=== PATIENT | male | born 1955 | race Asian ===

== ENCOUNTER 2018-01-21 13:12 | Inpatient (IN) | payer OTHER ==
[2018-01-21] VITALS (8 sets, daily range): BP systolic 107–130
[~2018-01-21] VITALS: Ht 172.7 cm; Wt 57.6 kg
--- NOTE | 2018-01-21 13:14 | NUR ---
Pt placed in bed 3 by ALS
--- NOTE | 2018-01-21 13:20 | NUR ---
Pt AAOx4, hx of stage 4 bilateral lung ca, presents to ED c/o SOB, fever, chills, cough, and "slow to respond" per family. Pt states his SOB and cough is normal. Denies N/V/CP. No other injuries/complaints per pt/noted. Will continue to monitor.
--- NOTE | 2018-01-21 13:24 | NUR ---
ER Dr. Schmitt at bedside examining patient.
--- NOTE | 2018-01-21 13:39 | NUR ---
Walker rausch in [facility] - 01/21/18 at 1659 by [email or web address] Pt resting comfortably in bed with no signs of distress.
[2018-01-21] MEDS ORDERED: LEVOFLOXACIN 500 MG/D5W 100 ML IV ONE (13:45)
[2018-01-21] MEDS ORDERED: ALBUTEROL SULFATE 0.083% 2.5 MG/3 ML VIAL.NEB INH ONE ×2 (13:45→14:48)
--- NOTE | 2018-01-21 14:30 | NUR ---
Respiratory at bedside
[2018-01-21 14:32] LABS: BASOPHILS # (AUTO) 0.1 K/uL (0.0-0.2); BASOPHILS % (AUTO) 0.4 % (0.0-2.0); EOSINOPHILS % (AUTO) 0.3 % (0.0-4.0); HEMATOCRIT 32.3 % (36-54); HEMOGLOBIN 10.2 g/dL (14.0-18.0); LYMPHOCYTES # (AUTO) 0.2 K/uL (1.0-5.5); LYMPHOCYTES % (AUTO) 1.7 % (20.5-51.5); MEAN CORPUSCULAR HEMOGLOBIN 23 pg (27-31); MEAN CORPUSCULAR HGB CONC 31 % (32-36); MEAN CORPUSCULAR VOLUME 75 fL (79.0-98.0); MONOCYTES # (AUTO) 0.5 K/uL (0.0-1.0); MONOCYTES % (AUTO) 3.8 % (1.7-9.3); NEUTROPHILS # (AUTO) 11.8 K/uL (1.8-7.7); NEUTROPHILS % (AUTO) 93.8 % (40.0-70.0); PLATELET COUNT (AUTO) 549 K/uL (130-430); RED BLOOD CELL COUNT(AUTO) 4.34 MIL/uL (4.2-6.2); RED CELL DISTRIBUTION WIDTH 19.8 % (9.0-15.0); WHITE BLOOD COUNT (AUTO) 12.6 K/uL (4.8-10.8)
--- NOTE | 2018-01-21 14:35 | NUR ---
IV Antibiotics administered. Pt tolerated well. No adverse reactions noted.
[2018-01-21 14:41] LABS: POTASSIUM 4.2 mmol/L (3.5-5.1)
[2018-01-21 14:42] LABS: CALCIUM 8.6 mg/dL (8.4-11.0); CREATININE 0.87 mg/dL (0.55-1.30)
[2018-01-21 14:43] LABS: INR 1.2 (0.80-1.20); PROTHROMBIN TIME 11.8 SECS (9.5-12.5)
[2018-01-21 14:46] LABS: TOTAL BILIRUBIN 0.3 mg/dL (0.0-1.0)
[2018-01-21] MEDS ORDERED: NACL 0.9% 1,000 ML IV ONE (15:15)
--- NOTE | 2018-01-21 15:45 | NUR ---
NS Bolus administered. Pt tolerated well. No adverse reactions noted.
[2018-01-21] MEDS ORDERED: IOHEXOL 350 mgI/mL, 150 ML INFUS..BTL IV ONE (16:00)
[2018-01-21] MEDS ORDERED: ZOLPIDEM TARTRATE 5 MG TABLET PO PRN (17:15)
[2018-01-21] MEDS ORDERED: IPRATROPIUM/ALBUTEROL SULFATE 3 ML AMPUL.NEB INH PRN (17:15)
[2018-01-21] MEDS ORDERED: DOCUSATE SODIUM 100 MG CAPSULE PO PRN (17:15)
[2018-01-21] MEDS ORDERED: MUPIROCIN 2% TOPICAL OINTMENT 22 GM NS PRN (17:15)
[2018-01-21] MEDS ORDERED: MORPHINE 2 MG/ML INJ. SYRINGE IVP PRN ×2 (17:15)
[2018-01-21] MEDS ORDERED: ONDANSETRON HCL 4 MG/2 ML VIAL IVP PRN (17:15)
[2018-01-21] MEDS ORDERED: LACTOBACILLUS RHAMNOSUS GG 1 CAP CAPSULE PO ONE (17:15)
[2018-01-21] MEDS ORDERED: POTASSIUM CHLORIDE 20 MEQ TAB.PRT.SR PO PRN (17:15)
[2018-01-21] MEDS ORDERED: ACETAMINOPHEN 325 MG TABLET PO PRN (17:15)
[2018-01-21] MEDS ORDERED: MAGNESIUM SULFATE 50 ML IV PRN (17:15)
[2018-01-21 17:23] LABS: BILIRUBIN,URINE NEGATIVE (NEGATIVE); BLOOD, URINE 1+ (NEGATIVE); CLARITY/URINE CLEAR (CLEAR); COLOR,URINE YELLOW (YELLOW); GLUCOSE,URINE NEGATIVE (NEGATIVE); KETONES,URINE NEGATIVE (NEGATIVE); LEUKOCYTE ESTERASE ,URINE TRACE (NEGATIVE); NITRITE, URINE NEGATIVE (NEGATIVE); PROTEIN URINE NEGATIVE (NEGATIVE); UROBILINOGEN,URINE 0.2 (0.2-1.0)
[2018-01-21 17:30] LABS: BACTERIA,URINE FEW /HPF (None Seen)
[2018-01-21 17:31] LABS: MUCUS,URINE 2+ /LPF (None Seen)
--- NOTE | 2018-01-21 17:34 | NUR ---
Dr. Strong contacted for acute hemorrhage. Asked for pt to be admitted to ICU and he will come to see him. Dr. Frey notified, admitting order changed to ICU.
[2018-01-21 17:38] LABS: BARBITURATE, URINE NEGATIVE (NEG <=200); BENZODIAZEPINE, URINE NEGATIVE (NEG <=150); CANNABINOID, URINE NEGATIVE (NEG <=50); COCAINE, URINE NEGATIVE (NEG <=150); METHAMPHETAMINES SCREEN,URINE NEGATIVE (NEG <=500); OPIATE, URINE POSITIVE (NEG <=100); PHENCYCLIDINE SCREEN,URINE NEGATIVE (NEG <=25); UR TRICYCLIC ANTIDEPRESSANTS NEGATIVE (NEG <=300); URINE AMPHETAMINE NEGATIVE (NEG <=500); URINE METHADONE NEGATIVE (NEG <=200); URINE OXYCODONE SCREEN NEGATIVE (NEG <=100); URINE PROPOXYPHENE SCREEN NEGATIVE (NEG <=300)
--- NOTE | 2018-01-21 17:45 | NUR ---
Patient will be admitted to care of Dr. Frey. Admitted to ICU unit. Will go to room 4. Belongings list completed. Summary report printed. Report will be given at bedside. Transfer to ICU via ACLS protocol. Licensed nurse present. IV present no signs or symptoms of infiltration.
[2018-01-21] MEDS ORDERED: PIPERACILLIN/TAZO 3.375/DEX-IS 50 ML IV SCH (18:00)
--- NOTE | 2018-01-21 18:00 | NUR ---
PT ADMITTED TO ICU4 FROM ER VIA [facility] FOR RESPIRATORY FAILURE AND ASPIRATION PNA. O2 SAT 100% ON 3LNC, PT DENIES SHORTNESS OF BREATH AT THIS TIME, UNLABORED RESPIRATIONS. SINUS TACHY ON MONITOR, HR 109. 20G LFA IV WITH NS AT 80ML/HR INFUSING, NO SIGNS INFILTRATION. PT USING URINAL TO VOID. PT DENIES PAIN AT THIS TIME. HOB ELEVATED, BED LOCKED AND IN LOWEST POSITION, CALL LIGHT IN REACH. PT'S AT BEDSIDE. WILL CONTINUE TO MONITOR.
[2018-01-21] MEDS: NACL 0.9% 1,000 ML IV SCH (18:20)
--- NOTE | 2018-01-21 18:37 | NUR ---
SPOKE TO PT AND PT'S SHANICE REGARDING CODE STATUS. EXPLAINED FULL CODE, DNR, MODIFIED CODE, ALL QUESTIONS ANSWERED. PT STATES HE WANTS TO BE DNR. PT STATES "I DON'T WANT ANYBODY DOING THAT STUFF TO ME, I JUST WANT TO ."
--- NOTE | 2018-01-21 18:46 | NUR ---
CONSULT: PAGED DR HART SPOKE TO BAUTISTA
[2018-01-21 19:07] LABS: C-REACTIVE PROTEIN QUANT 13.4 mg/dL (0-0.5); FREE T4 (FREE THYROXINE) 1.3 ng/dL (0.6-1.6)
--- NOTE | 2018-01-21 19:30 | NUR ---
OPENING NOTE PT IN BED, AWAKE, ALERT. NO SIGNS OF DISTRESS, NO COMPLAINT OF PAIN OR DISCOMFORT. SINUS RHYTHM ON THE ELECTRONICS INSTALLER. CARE WILL CONTINUE THROUGH SHIFT.
[2018-01-21 20:53] LABS: PHOSPHORUS 3.7 mg/dL (2.7-4.5); THYROID STIMULATING HORMONE 0.44 uIu/mL (0.34-4.82)
[2018-01-21] MEDS: PIPERACILLIN/TAZO 3.375/DEX-IS 50 ML IV SCH (20:57)
[2018-01-21] MEDS ORDERED: DESMOPRESSIN ACETATE 4 MCG/ML AMP IVP ONE (21:15)
[2018-01-21] MEDS ORDERED: levETIRAcetam 1,000 MG in NS 100 ML IV ONE (21:15)
[2018-01-21] MEDS ORDERED: DESMOPRESSIN ACETATE 4 MCG/ML AMP ONE ×2 (21:44→22:23)
[2018-01-22] VITALS (20 sets, daily range): BP systolic 96–136
[2018-01-22] MEDS: PIPERACILLIN/TAZO 3.375/DEX-IS 50 ML IV SCH ×4 (01:41→20:57)
--- NOTE | 2018-01-22 03:00 | NUR ---
CT SCAN PT TAKEN TO CT FOR CT OF THE HEAD WITHOUT CONTRAST. NO COMPLICATIONS DURING PROCEDURE.
[2018-01-22 06:16] LABS: MEAN CORPUSCULAR HGB CONC 32 % (32-36)
[2018-01-22 06:26] LABS: HEMATOCRIT 25.1 % (36-54); HEMOGLOBIN 7.9 g/dL (14.0-18.0); MEAN CORPUSCULAR HEMOGLOBIN 24 pg (27-31); MEAN CORPUSCULAR VOLUME 75 fL (79.0-98.0); PLATELET COUNT (AUTO) 442 K/uL (130-430); RED BLOOD CELL COUNT(AUTO) 3.36 MIL/uL (4.2-6.2); RED CELL DISTRIBUTION WIDTH 19.4 % (9.0-15.0); WHITE BLOOD COUNT (AUTO) 9.4 K/uL (4.8-10.8)
[2018-01-22 06:33] LABS: CALCIUM 8.1 mg/dL (8.4-11.0); CREATININE 0.79 mg/dL (0.55-1.30); PHOSPHORUS 3.6 mg/dL (2.7-4.5); POTASSIUM 3.7 mmol/L (3.5-5.1)
--- NOTE | 2018-01-22 07:09 | NUR ---
CLOSING NOTE PT IN BED, ASLEEP. NO SIGNS OF DISTRESS, NO PAIN OR DISCOMFORT. NO ACUTE CHANGES IN CONDITION OBSERVED OVERNIGHT. SCHEDULED MRI/MRA AND CTA FOR THIS MORNING CARE WILL CONTINUE TO NEXT SHIFT.
--- NOTE | 2018-01-22 07:30 | NUR ---
RECEIVED REPORT FROM HELENA JAMIL. PT IN BED WITH EYES CLOSED, RESPONDS TO VERBAL STIMULATION. PT AAOX4, ABLE TO VERBALIZE NEEDS. O2 SAT 100% ON 3LNC, PT DENIES SHORTNESS OF BREATH, UNLABORED RESPIRATIONS. SR ON MONITOR. SCDs IN USE. 20G LFA IV WITH NS AT 80ML/HR INFUSING, NO SIGNS INFILTRATION NOTED. HOB ELEVATED, BED LOCKED AND IN LOWEST POSITION, CALL LIGHT IN REACH. DR DAVID, NEUROSURGEON AT BEDSIDE DISCUSSING CT HEAD RESULTS AND PLAN OF CARE. WILL CONTINUE TO MONITOR.
[2018-01-22] MEDS: NACL 0.9% 1,000 ML IV SCH ×2 (08:04→17:06)
[2018-01-22] MEDS: LACTOBACILLUS RHAMNOSUS GG 1 CAP CAPSULE PO SCH (08:04)
[2018-01-22] MEDS: VALSARTAN 160 MG TABLET (DIOVAN) PO SCH (08:04)
[2018-01-22] MEDS: METOPROLOL SUCCINATE 50 MG TAB.SR.24H (TOPROL XL) PO SCH (08:04)
[2018-01-22 08:19] LABS: T4 (THYROXINE) 8.8 ug/dL (4.5-12.0)
--- NOTE | 2018-01-22 09:08 | NUR ---
Nutrition Update Simon Scale 16 noted. Pt admitted for respiratory failure and aspiration pneumonia. Diet: N/A BMI: 22.5 kg/m2 RD to follow per nutrition care standards.
[2018-01-22 12:09] LABS: CALCIUM 7.9 mg/dL (8.4-11.0); CREATININE 0.7 mg/dL (0.55-1.30); POTASSIUM 3.6 mmol/L (3.5-5.1)
[2018-01-22 13:07] LABS: BAND % (MANUAL) 2 % (0-6); LYMPHOCYTES % (MANUAL) 8 % (20-46)
[2018-01-22 13:08] LABS: BASOPHILS % (MANUAL) 0 % (0-2); EOSINOPHILS % (MANUAL) 1 % (0-7); MONOCYTES % (MANUAL) 8 % (0-11)
[2018-01-22] MEDS ORDERED: DEXAMETHASONE SOD PHOSPHATE 10 MG/ML VIAL IVP ONE (13:45)
--- NOTE | 2018-01-22 13:59 | NUR ---
Dietitian Recommendations * Recommend advance diet per MD if/when medically appropriate (regular diet, Ensure Enlive TID) * Consider snacks TID in-between meals LP, RD Please refer to Nutrition Assessment for details.
--- NOTE | 2018-01-22 14:24 | NUR ---
ROUNDS DR SWARTZ HERE TO EVALUATE PT. RECEIVED ORDERS FOR DECADRON AND KEPPRA. SAYS OKAY TO START PT ON REGULAR DIET.
--- NOTE | 2018-01-22 14:44 | NUR ---
PT TAKEN OFF UNIT FOR MRI, ACCOMPANIED BY LOULOU BURNETT. PT ON PORTABLE MONITOR AND O2 TANK.
[2018-01-22] MEDS ORDERED: GADOPENTETATE DIMEGLUMINE 15 ML VIAL IV ONE (15:15)
[2018-01-22] MEDS: levETIRAcetam 1,000 MG in NS 100 ML IV SCH ×2 (17:06→20:58)
--- NOTE | 2018-01-22 19:42 | NUR ---
Closing Notes Pt resting comfortably in bed with and son at bedside. Vital signs stable. Endorsed to night RN.
--- NOTE | 2018-01-22 19:45 | NUR ---
Opening Note: Received patient A/O x 3. Pt re-oriented to room, date and time. Family at bedside. Pt on 3L NC saturating @ 99%. Pt SR on editing clerk. IVF infusing well, no signs of infiltration noted, dressing dry and intact. POC discussed, no further questions at this time. HOB elevated, call light within reach. Bed locked, in lowest position. No SOB or acute distress noted. Will continue to monitor.
--- NOTE | 2018-01-22 21:15 | NUR ---
CHG Bath: CHG bath rendered. Linens changed. Pt tolerated care well. Will continue to monitor.
[2018-01-23] VITALS (24 sets, daily range): BP systolic 100–136
--- NOTE | 2018-01-23 00:15 | NUR ---
RN Rounds Pt's gown and underwear found on the floor, BP cuff removed, pulse oximeter removed, when pt was asked, pt shrugged his shoulders and mentioned no recollection of what happened. Patient re-oriented to room, date and time. Pt gowned and positioned to comfort. Pt re-educated on importance of use of BP cuff, pulse ox and use of call light for assistance. Will continue to monitor.
[2018-01-23] MEDS: PIPERACILLIN/TAZO 3.375/DEX-IS 50 ML IV SCH ×4 (02:42→20:06)
--- NOTE | 2018-01-23 04:55 | NUR ---
RN Rounds Attended to pts call light, found pt's BP cuff on the floor, pulse ox removed, PIV out. Pt refuses to answer questions about what happened but said he just wanted to do that. Pt re-educated. Pt passive and refuses to listen. Explained the importance of starting another IV site, pt refuses at this time. CN made aware. Will continue to closely monitor.
[2018-01-23 06:56] LABS: CALCIUM 8.7 mg/dL (8.4-11.0); CREATININE 0.73 mg/dL (0.55-1.30); PHOSPHORUS 3.7 mg/dL (2.7-4.5); POTASSIUM 3.8 mmol/L (3.5-5.1)
[2018-01-23 07:08] LABS: EOSINOPHILS % (AUTO) 0.1 % (0.0-4.0); HEMATOCRIT 26.9 % (36-54); HEMOGLOBIN 8.6 g/dL (14.0-18.0); LYMPHOCYTES # (AUTO) 0.2 K/uL (1.0-5.5); LYMPHOCYTES % (AUTO) 1.6 % (20.5-51.5); MEAN CORPUSCULAR HEMOGLOBIN 24 pg (27-31); MEAN CORPUSCULAR HGB CONC 32 % (32-36); MEAN CORPUSCULAR VOLUME 75 fL (79.0-98.0); MONOCYTES # (AUTO) 0.1 K/uL (0.0-1.0); MONOCYTES % (AUTO) 1.2 % (1.7-9.3); NEUTROPHILS # (AUTO) 9.4 K/uL (1.8-7.7); NEUTROPHILS % (AUTO) 97.1 % (40.0-70.0); PLATELET COUNT (AUTO) 479 K/uL (130-430); RED CELL DISTRIBUTION WIDTH 18.9 % (9.0-15.0)
--- NOTE | 2018-01-23 07:10 | NUR ---
Endorsement Patient VSS. No SOB or acute distress noted. POC endorsed to Namrata JAMIL at bedside.
[2018-01-23 07:25] LABS: WHITE BLOOD COUNT (AUTO) 9.7 K/uL (4.8-10.8)
--- NOTE | 2018-01-23 07:30 | NUR ---
AM Assessment Received pt asleep, arousable, oriented x2. Pt states no pain or distress at this time. Respirations even and unlabored with 3L O2 via NC. Skin warm and dry. Pt states he refuses SCDs and IV at this time. Bed locked in lowest position. Call light in reach. Will continue to monitor.
[2018-01-23] MEDS: VALSARTAN 160 MG TABLET (DIOVAN) PO SCH (08:36)
[2018-01-23] MEDS: METOPROLOL SUCCINATE 50 MG TAB.SR.24H (TOPROL XL) PO SCH (08:37)
[2018-01-23] MEDS: LACTOBACILLUS RHAMNOSUS GG 1 CAP CAPSULE PO SCH (08:37)
--- NOTE | 2018-01-23 08:44 | NUR ---
Dr. Pérez in to see pt. Dr. Pérez states she "will start pt on new meds which will require increased monitoring in ICU."
[2018-01-23] MEDS: levETIRAcetam 1,000 MG in NS 100 ML IV SCH ×2 (09:43→21:36)
--- NOTE | 2018-01-23 09:43 | NUR ---
RN Notes Educated pt on the need to start IV for medications. Pt states understanding for need for IV and allowed for RN to insert IV. Failed IV attempts twice. Educated pt on failed IV attempts. Before third IV start attempt, Maryanne RN was present by doorway of pt's room and pt states to Maryanne, "This nurse doesn't know what she's doing." Provided reeducation to pt regarding why IV had failed attempts. Pt refuse to answer RN but allowed for 3rd attempt at IV stick, which was successful. Instructed pt on importance to keep IV site patent for tx, pt nodded and said, "Okay. I understand."
[2018-01-23] MEDS: NACL 0.9% 1,000 ML IV SCH (09:44)
--- NOTE | 2018-01-23 09:44 | NUR ---
IV PLACEMENT: # 22 gauge angiocath placed to right wrist. Use of asceptic technique. Opsite placed over site. Blood return noted. Flushed with 10 cc of normal saline. No evidence of infiltration noted. Patient tolerated well.
--- NOTE | 2018-01-23 10:50 | NUR ---
Dr. Beto Pérez paged and called back unit. Dr. Pérez spoke to pt's , Karley Hodge, per 's request for updates.
--- NOTE | 2018-01-23 11:05 | NUR ---
RN Notes Assisted pt to bedside commode for third time today. Pt had large BM x3 and is "asking for a laxative" and has had occasional flatulence. Educated pt that he has had "3 large bowel movements/poop." Pt states, "OK" and refuses to answer question if education has been effective.
[2018-01-23] MEDS ORDERED: DEXAMETHASONE SOD PHOSPHATE 4 MG/ML VIAL INH SCH (13:00)
[2018-01-23] MEDS ORDERED: LORazepam 1 MG TABLET PO PRN (14:15)
--- NOTE | 2018-01-23 14:29 | NUR ---
Consult call to Dr Lawson's office. Spoke with Pina.
[2018-01-23] MEDS ORDERED: SODIUM CHLORIDE 500 MG TABLET PO ONE (14:30)
[2018-01-23] MEDS ORDERED: DOCUSATE SODIUM 100 MG CAPSULE PO ONE (14:30)
--- NOTE | 2018-01-23 14:30 | NUR ---
Dr. Frey at bedside with pt and pt's , Karley, discussing plan of care and concerns. New orders made and carried out.
--- NOTE | 2018-01-23 15:44 | NUR ---
D/C IV fluid per Dr. Kim's orders. IV site intact, patent, no infiltration noted.
--- NOTE | 2018-01-23 16:14 | NUR ---
DC Planning: [facility] transfer: CM contacted [facility] , admitting dept # [phone], s/w Zeny who took the transfer request information today. The pt. is a currently has treatments under dr. 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 Zeny will contact dr. Goss for peer to peer with dr. Fátima Pérez. [facility] requests to speak with "MD" only not "D.O". Zeny will call back once receive decision from dr. Goss. Addendum: 01/23/18 at 1641 by Herson Shultz RN >> CM updated pt. spouse Karley Danny # [phone], Karley agreed with the transfer recommendation.
--- NOTE | 2018-01-23 16:49 | NUR ---
Financial Aid Counselor Note: Pt referred to Financial Aid Counselor due to pt's requesting caregiver resources. Paint Spraying Machine Operator Helper, Herson, requested for PAINTER AND BODY MECHANIC APPRENTICE to update pt that Case Management staff is working on [facility] transfer, but [facility] will not allow transfers on the weekend. Opheliaevanarmond states that she has provided update to pt's . PAINTER AND BODY MECHANIC APPRENTICE met with pt at bedside and provided caregiver resources. PAINTER AND BODY MECHANIC APPRENTICE updated pt regarding status of [facility] transfer. PAINTER AND BODY MECHANIC APPRENTICE informed pt that PAINTER AND BODY MECHANIC APPRENTICE will update pt's regarding caregiver resources provided. Pt is agreeable. PAINTER AND BODY MECHANIC APPRENTICE called and left a voice mail for pt's , Karley Rebolledo ([phone]), regarding caregiver resources provided at pt's bedside. Financial Aid Counselor will continue to remain available and follow up as needed.
[2018-01-23] MEDS: DEXAMETHASONE SOD PHOSPHATE 4 MG/ML VIAL IVP SCH ×2 (17:02→23:44)
--- NOTE | 2018-01-23 19:16 | NUR ---
Closing/Endorsement Pt awake and confused. Reoriented and reeducated pt on situation. IV site intact, patent, no infiltration noted. Bed locked in lowest position. Call light in reach. Endorsed plan of care to Marielena JAMIL.
--- NOTE | 2018-01-23 19:20 | NUR ---
Opening Note: Received patient A/O x 2. Pt re-oriented to room, date and time. Family at bedside. Pt on 3L NC saturating @ 99%. Pt SR on monitoring engineer. IV site: #22G on saline lock, flushable with good blood return. POC discussed, no further questions at this time. Pt refuses bilateral SCDs. HOB elevated, call light within reach. Bed locked, in lowest position. No SOB or acute distress noted. Will continue to monitor.
[2018-01-23] MEDS: DOCUSATE SODIUM 100 MG CAPSULE PO SCH (20:06)
[2018-01-23] MEDS ORDERED: SODIUM CHLORIDE 500 MG TABLET PO SCH (21:00)
--- NOTE | 2018-01-23 21:53 | NUR ---
Dr. Frey on the phone. Ativan orders clarified with MD. Per MD, administer Ativan P.O for mild anxiety and Ativan IVP for moderate anxiety. Orders will be carried out.
--- NOTE | 2018-01-23 22:20 | NUR ---
CHG Bath: CHG bath rendered. Linens changed. Pt tolerated care well. Will continue to monitor.
[2018-01-24] VITALS (24 sets, daily range): BP systolic 93–132
--- NOTE | 2018-01-24 00:10 | NUR ---
Patient caught removing BP cuff and pulse ox off, re-educated about purpose of monitoring. Pt agrees to keep it on. Pt VSS. No signs of distress noted. Will continue to monitor.
[2018-01-24] MEDS: PIPERACILLIN/TAZO 3.375/DEX-IS 50 ML IV SCH ×4 (01:56→20:17)
[2018-01-24] MEDS: LORazepam 2 MG/ML VIAL IVP PRN (02:17)
--- NOTE | 2018-01-24 02:20 | NUR ---
Patient getting more anxious, pt removing gown, BP cuff and pulse ox. Pt re-oriented. Ativan given per MD orders. Will continue to monitor.
[2018-01-24] MEDS: DEXAMETHASONE SOD PHOSPHATE 4 MG/ML VIAL IVP SCH ×3 (05:09→18:15)
[2018-01-24 06:31] LABS: LYMPHOCYTES # (AUTO) 0.3 K/uL (1.0-5.5); NEUTROPHILS # (AUTO) 11.4 K/uL (1.8-7.7)
[2018-01-24 06:36] LABS: CALCIUM 8.7 mg/dL (8.4-11.0); CREATININE 0.88 mg/dL (0.55-1.30); PHOSPHORUS 3.1 mg/dL (2.7-4.5); POTASSIUM 4.4 mmol/L (3.5-5.1)
[2018-01-24 06:39] LABS: BASOPHILS % (AUTO) 0.1 % (0.0-2.0); EOSINOPHILS % (AUTO) 0.1 % (0.0-4.0); HEMATOCRIT 28.5 % (36-54); HEMOGLOBIN 9.1 g/dL (14.0-18.0); LYMPHOCYTES % (AUTO) 2.2 % (20.5-51.5); MEAN CORPUSCULAR HEMOGLOBIN 24 pg (27-31); MEAN CORPUSCULAR HGB CONC 32 % (32-36); MEAN CORPUSCULAR VOLUME 75 fL (79.0-98.0); MONOCYTES # (AUTO) 0.2 K/uL (0.0-1.0); MONOCYTES % (AUTO) 1.6 % (1.7-9.3); PLATELET COUNT (AUTO) 518 K/uL (130-430); RED BLOOD CELL COUNT(AUTO) 3.82 MIL/uL (4.2-6.2); RED CELL DISTRIBUTION WIDTH 18.2 % (9.0-15.0); WHITE BLOOD COUNT (AUTO) 11.9 K/uL (4.8-10.8)
--- NOTE | 2018-01-24 07:15 | NUR ---
Endorsement: Patient VSS. No SOB or acute distress noted. POC endorsed to Whitney JAMIL.
--- NOTE | 2018-01-24 07:50 | NUR ---
AM ASSESSMENT. PT OPENED HIS EYES TO VERBAL STIMULI, INCONTINENT OF BLADDER, EXPLAINED TO PT WHAT'S TO BE DONE, REMOVED HIS ATHLETIC PANTS, GOOD SKIN CARE DONE, LINEN CHANGED, BLANKETS, AND GOWN. PT CONFUSED DURING CARE, REALITY ORIENTATION PROVIDED.
--- NOTE | 2018-01-24 08:15 | NUR ---
LOC. PT RESTLESS, TURNED HIMSELF SIDEWAYS, ONE LEG DANGLING, REPOSITIONED IN THE MIDDLE OF THE BED, FELT HIS GOWN WET, CHANGED BOTTOM PAD, PERINEAL CARE DONE.
--- NOTE | 2018-01-24 08:50 | NUR ---
DIET. ASSISTED PT DURING BREAKFAST, SOME WEAKNESS, PT HAD GOOD APPETITE.
[2018-01-24] MEDS: DOCUSATE SODIUM 100 MG CAPSULE PO SCH ×2 (09:03→21:00)
[2018-01-24] MEDS: METOPROLOL SUCCINATE 50 MG TAB.SR.24H (TOPROL XL) PO SCH (09:04)
[2018-01-24] MEDS: VALSARTAN 160 MG TABLET (DIOVAN) PO SCH (09:05)
[2018-01-24] MEDS: LACTOBACILLUS RHAMNOSUS GG 1 CAP CAPSULE PO SCH (09:05)
[2018-01-24] MEDS: levETIRAcetam 1,000 MG in NS 100 ML IV SCH ×2 (09:55→20:59)
--- NOTE | 2018-01-24 10:47 | NUR ---
DC Planning: F/U with Zeny at [facility] admitting dept: stated that dr. Pérez did not return call to [facility] for peer to peer report. AYAD left message with SANDRA Baptiste for dr. Pérez to call # [phone]. Dr. Frey made aware , he reqeusted dr. Kim to speak with [facility]. Ayad notified dr. Kim via her cell phone. Addendum: 01/24/18 at 1133 by Herson Shultz RN >> Received a call back from [facility]: stated that Dr. Regine Key, oncologist had reviewed the case and would accept as out patient. AYAD to call the scheduling office on Friday, the scheduling office is closed during weekend. Notified via to Dr. Frey's phone. SANDRA Baptiste made aware.
--- NOTE | 2018-01-24 11:40 | NUR ---
FAMILY. PT'S AT BEDSIDE. UPDATED ON PT'S CONDITION.
--- NOTE | 2018-01-24 13:55 | NUR ---
N/V ASKED FOR AN EMESIS BASIN, "HE'S NAUSEOUS", MEDICATED PT WITH ZOFRAN 4 MG IVP, ELEVATED PT HEAD OF BED.
--- NOTE | 2018-01-24 15:40 | NUR ---
NURSING. HELPED PT CHANGED HIS BOTTOM SHEET, PT INCONTINENT. LEFT AT THIS HOUR.
--- NOTE | 2018-01-24 16:20 | NUR ---
FAMILY. PT'S CAME BACK AND BROUGHT HIM A BEEF BOWL FOR SNACKS, PT ATE SOME OF IT AND GAVE THE REST TO HIS .
--- NOTE | 2018-01-24 18:32 | NUR ---
FAMILY. PT'S SISTER AT BEDSIDE, TRAY FOR DINNER SERVED, PT SEEN WITH GOOD APPETITE.
--- NOTE | 2018-01-24 19:10 | NUR ---
PM SHIFT Patient received from am nurse Whitney Brian Patient in bed, sleeping. Rise and fall of chest noted. Sister at bedside. No sign of distress noted. VS within normal limits. Patient on room air. No sign of respiratory distress noted. IV on right wrist 22g patent and no sign of infiltration noted. Safety precaution in place. Call light within reach. Will continue to monitor.
[2018-01-25] VITALS (21 sets, daily range): BP systolic 94–130
[2018-01-25] MEDS: DEXAMETHASONE SOD PHOSPHATE 4 MG/ML VIAL IVP SCH ×4 (00:54→18:19)
[2018-01-25] MEDS: PIPERACILLIN/TAZO 3.375/DEX-IS 50 ML IV SCH ×4 (02:15→21:11)
[2018-01-25] MEDS: LORazepam 2 MG/ML VIAL IVP PRN (04:40)
[2018-01-25 05:41] LABS: EOSINOPHILS % (AUTO) 0.1 % (0.0-4.0); HEMATOCRIT 28.7 % (36-54); HEMOGLOBIN 9.3 g/dL (14.0-18.0); LYMPHOCYTES # (AUTO) 0.2 K/uL (1.0-5.5); LYMPHOCYTES % (AUTO) 1.4 % (20.5-51.5); MEAN CORPUSCULAR HEMOGLOBIN 25 pg (27-31); MEAN CORPUSCULAR HGB CONC 32 % (32-36); MEAN CORPUSCULAR VOLUME 75 fL (79.0-98.0); MONOCYTES # (AUTO) 0.9 K/uL (0.0-1.0); MONOCYTES % (AUTO) 5.2 % (1.7-9.3); NEUTROPHILS # (AUTO) 15.6 K/uL (1.8-7.7); PLATELET COUNT (AUTO) 535 K/uL (130-430); RED BLOOD CELL COUNT(AUTO) 3.81 MIL/uL (4.2-6.2); RED CELL DISTRIBUTION WIDTH 18.9 % (9.0-15.0); WHITE BLOOD COUNT (AUTO) 16.8 K/uL (4.8-10.8)
[2018-01-25 06:00] LABS: CALCIUM 8.4 mg/dL (8.4-11.0); CREATININE 0.85 mg/dL (0.55-1.30); PHOSPHORUS 2.6 mg/dL (2.7-4.5)
[2018-01-25 06:41] LABS: NEUTROPHILS % (AUTO) 93.3 % (40.0-70.0)
--- NOTE | 2018-01-25 07:15 | NUR ---
ENDORSEMENT Patient endorsed to tony Olson. Report given.
--- NOTE | 2018-01-25 07:50 | NUR ---
AM ASSESSMENT. APPROACHED PT, AND HE'S AWAKE, DENIES BODY DISCOMFORTS, ASSESSED HIS NEEDS, SHEETS COLD AND MOIST WHEN TOUCHED, HE NODDED HIS HEAD, PT URINATED ON THE BED, BEDBATH PROVIDED, HEARD PT COUGHING DURING NURSING CARE, HEAD OF BED ELEVATED AND TURNED PT TO HIS SIDE, PLACED O2 AT 3 L/MIN FOR COMFORT, FOUND MENTOS CANDY ON HIS ROLLING TABLE AND PUT AWAY THE CANDY TO A PLACE HE CANNOT REACH. WILL HOLD HIS FOOD TRAY FOR NOW.
[2018-01-25] MEDS: METOPROLOL SUCCINATE 50 MG TAB.SR.24H (TOPROL XL) PO SCH (09:00)
[2018-01-25] MEDS: VALSARTAN 160 MG TABLET (DIOVAN) PO SCH (09:00)
[2018-01-25] MEDS: levETIRAcetam 1,000 MG in NS 100 ML IV SCH ×2 (09:48→21:11)
--- NOTE | 2018-01-25 09:55 | NUR ---
INVENTORY ASSISTANT. DR HART WENT TO SEE PT AND EXAMINED. REPORTED THAT PT HAD BEEN COUGHING AND O2 WAS APPLIED TO PT FOR COMFORT.
[2018-01-25] MEDS: LACTOBACILLUS RHAMNOSUS GG 1 CAP CAPSULE PO SCH (09:57)
[2018-01-25] MEDS: DOCUSATE SODIUM 100 MG CAPSULE PO SCH ×2 (09:57→21:07)
--- NOTE | 2018-01-25 11:00 | NUR ---
DIET. CAME IN AND BROUGHT A BOWL ORDERED FROM [employer]. FED PT,AND HE TOLERATED.
--- NOTE | 2018-01-25 12:00 | NUR ---
Francis PT ASKED FOR HELP IN USING THE BATHROOM, BEDSIDE COMMODE, ASSIST REQUIRED, PT WEAK AND SHAKY, BLANKET PROVIDED WHILE HE SAT IN THE COMMODE. PT HAD A BOWEL MOVEMENT, HYGIENE PROVIDED.
--- NOTE | 2018-01-25 14:03 | NUR ---
DC Planning: Met with dr. Frey to discuss POC: The md wants to get clearance from dr. Pérez whether the pt requires the inpatient transfer or going to [facility] as out patient. AYAD updated RN Whitney and she will put a call to remind dr. Pérez to evaluate the pt. clinical manager to arrange the inpatient transfer vs. to get the out patient appointment accordingly. >> AAYD updated POC to pt's spouse/Karley # [phone]. She agreed with the plan sofar. She will f/u with CM on duty on tomorrow.
--- NOTE | 2018-01-25 15:15 | NUR ---
SNACKS. PT COMPLAINED "WHERE IS MY LUNCH?", ASSESSED PT'S FOOD LIKES, ORDERED A TURKEY SANDWICH, WITH FRESH STRAWBERRIES, HONEY DEW, AND JELLO. PT CONSUMED ALMOST EVERYTHING PLACED ON HIS TRAY EXCEPT THE REMAINING HALF OF THE SANDWICH.
[2018-01-25] MEDS ORDERED: NAPH,MB-DB/K PH,MBDB 250 MG TAB PO ONE (16:45)
--- NOTE | 2018-01-25 17:00 | NUR ---
MD DR SWARTZ HERE AND SPOKE TO PT. WILL BE TRANSFERRING PT TO TELEMETRY DEPT [facility].
--- NOTE | 2018-01-25 19:00 | NUR ---
TO [facility]. TRANSFERRED PT TO ROOM 112-A VIA PORTABLE CARDIAC MONITORING, REPORT GIVEN TO LOULOU LARSEN. ALL PERSONAL BELONGINGS MOVED INTO ASSIGNED ROOM. FAMILY ACCOMPANIED PT.
--- NOTE | 2018-01-25 19:10 | NUR ---
pt.received from the unit:icu.pt.presents general status stable.respiratory status:pt.requires o2 therapy. pt.presents hx.lung cancer w/mets;pt.presents incoherent speech.family accompanied the pt.pt.presents o2 via nasal cannulae:@#2l/min.presents bedrest activity.iv fluids infusing via iv access locate rt/wrist. call light/telephone placed w/in the pt's reach.
--- NOTE | 2018-01-25 19:50 | NUR ---
pt.assessed.v/s assessed:values w/in normal limits.pt.has been repositioned.pt.presents general status stable.respiratory status o2-sat%=100%i have apprised the pt.that snacks are available. is leaving had requested that her telephone # is available to nsg: i have reviewed the administration data sheet;presented to the ;the telephone#is current/correct.call light/telephone placed w/in the pt's reach.
--- NOTE | 2018-01-25 21:15 | NUR ---
2100p medications administered.keppra;ivpb,.pt.somnolent@this hour.
[2018-01-25] MEDS: guaiFENesin/DEXTROMETHORPHAN 10 ML UDC PO PRN (22:25)
--- NOTE | 2018-01-25 22:25 | NUR ---
pt.assessed.pt.presents cough episodes.i have administered robitussin po.pt.presents general status stable. pt.repositioned.i have attended to the urinal;emptied/cleaned.call light/telephone placed w/in the pt's reach.
[2018-01-26] MEDS: DEXAMETHASONE SOD PHOSPHATE 4 MG/ML VIAL IVP SCH ×4 (00:30→17:55)
--- NOTE | 2018-01-26 00:30 | NUR ---
pt.assessed.v/s assessed;values w/in normal limits.general status stable.respiratory status stable.;o2-sat%=98%. i have administered the decadron;4mg ivp.urinal attended to;emptied/cleaned.pt.repositioned.call light/telephone placed w/in the pt's reach.
[2018-01-26] MEDS: PIPERACILLIN/TAZO 3.375/DEX-IS 50 ML IV SCH ×4 (01:30→20:26)
--- NOTE | 2018-01-26 02:00 | NUR ---
pt.assessed.pt.presents quiescent affect;calm,somnolent.general status stable.respiratory status stable. iv fluids infusing.zosyn:0200a dose administered.@0130a.pt.repositioned.call light/telephone placed w/in the pt's reach.
--- NOTE | 2018-01-26 04:15 | NUR ---
pt.assessed.pt.presents quiescent affect;calm,somnolent.general; status stable.respiratory status stable,o2-sat%=98%. iv fluids infusing.pt.repositioned.call light/telephone placed w/in the pt's reach.
--- NOTE | 2018-01-26 06:30 | NUR ---
pt.assessed.pt.presents quiescent affect;calm.awake.i have attended to the urinal:emptied/cleaned. pt.presents general status stable.respiratory status stable.iv fluids infusing.pt.repositioned.no c/o pain, nausea.kendall light/telephone placed w/in the reach.
[2018-01-26 07:27] LABS: EOSINOPHILS % (AUTO) 0.1 % (0.0-4.0); HEMATOCRIT 29.5 % (36-54); HEMOGLOBIN 9.5 g/dL (14.0-18.0); LYMPHOCYTES # (AUTO) 0.3 K/uL (1.0-5.5); LYMPHOCYTES % (AUTO) 2.6 % (20.5-51.5); MEAN CORPUSCULAR HEMOGLOBIN 24 pg (27-31); MEAN CORPUSCULAR HGB CONC 32 % (32-36); MEAN CORPUSCULAR VOLUME 75 fL (79.0-98.0); MONOCYTES # (AUTO) 0.6 K/uL (0.0-1.0); MONOCYTES % (AUTO) 4.5 % (1.7-9.3); NEUTROPHILS # (AUTO) 11.9 K/uL (1.8-7.7); NEUTROPHILS % (AUTO) 92.8 % (40.0-70.0); PLATELET COUNT (AUTO) 517 K/uL (130-430); RED BLOOD CELL COUNT(AUTO) 3.94 MIL/uL (4.2-6.2); WHITE BLOOD COUNT (AUTO) 12.8 K/uL (4.8-10.8)
[2018-01-26 07:37] LABS: CALCIUM 8.6 mg/dL (8.4-11.0); CREATININE 0.85 mg/dL (0.55-1.30); POTASSIUM 4.3 mmol/L (3.5-5.1)
[2018-01-26 07:40] VITALS: BP_SYST 124
--- NOTE | 2018-01-26 07:40 | NUR ---
INITIAL ROUNDS Received pt AAOx3-forgetful at times, no s/s resp distress, no c/o pain or discomfort. Plan of care reviewed with pt-pt stated okay-will reinforce all teachings. Seizure precautions in place. Pain management, skin and safety discussed-teach back done. Safety precautions in place-call light within reach.
[2018-01-26] MEDS: levETIRAcetam 1,000 MG in NS 100 ML IV SCH ×2 (09:49→21:16)
[2018-01-26] MEDS: LACTOBACILLUS RHAMNOSUS GG 1 CAP CAPSULE PO SCH (09:49)
[2018-01-26] MEDS: VALSARTAN 160 MG TABLET (DIOVAN) PO SCH (09:51)
[2018-01-26] MEDS: DOCUSATE SODIUM 100 MG CAPSULE PO SCH ×2 (09:51→20:31)
[2018-01-26] MEDS: METOPROLOL SUCCINATE 50 MG TAB.SR.24H (TOPROL XL) PO SCH (09:51)
--- NOTE | 2018-01-26 10:10 | NUR ---
ROUNDS/AMBULATION Pt given due medications. Pt with no c/o pain or discomfort, no s/s resp distress. Pt assisted with ambulation to the bathroom and had a BM. Pt's son at bedside.
[2018-01-26] MEDS: guaiFENesin/DEXTROMETHORPHAN 10 ML UDC PO PRN (10:47)
--- NOTE | 2018-01-26 10:50 | NUR ---
COUGH Pt coughing a lot, given cough syrup as ordered. Pt made comfortable. Call light within reach.
[2018-01-26 12:00] VITALS: BP_SYST 102
--- NOTE | 2018-01-26 12:35 | NUR ---
ROUNDS Pt sitting up in bed eating his lunch. No s/s resp distress, sporadic cough noted. Pt's son remains at bedside. No changes. Call light within reach.
--- NOTE | 2018-01-26 12:37 | NUR ---
D/C Planning: Received follow up note from previous CM. CM spoke tunde Araiza requesting update on transfer status to [facility]. Called [facility] admitting at [phone] spoke tunde Hoffman advised transfering me to Transfer center ext [phone] spoke tunde Laura advised to fax clinical information to . Received call back from Keya upon further review noted that [facility] is not accepting as acute transfer pt is not stable enough for treatment. Per Keya Requesting Dr Araiza call [facility] MD Dr Ana Paula Eagle phone # [phone] [phone]. Provided information to Dr Araiza. Per Dr Araiza telephone order read back: D/C Planning to [facility] for tomorrow. Addendum: 01/26/18 at 1313 by Rafaela Goldstein RN D/C Planning: CM to bedside spoke tunde pt and son at bedside. Son called pt's on speaker phone CM updated unable to transfer to [facility] as pt was declined explained per Dr Araiza suggesting SNF care. Advised Dr Araiza recommends [facility]. Family to see facility. Advised planned D/C for tomorrow to SNF. Addendum: 01/26/18 at 1426 by Rafaela Goldstein RN Dr Araiza call Received call from Dr Araiza per family request to discuss D/C Planning. Dr Araiza provided all options including home [facility] home health although his recommending SNF care short term. Pt and son's at bedside agreeable to SNF plan at this point but will further discuss with Cm after they tour the facility.
--- NOTE | 2018-01-26 14:39 | NUR ---
ROUNDS Pt resting quietly in bed with eyes closed, rise and fall of chest even and unlabored. No changes. Pt's other son now at bedside. Call light within reach.
--- NOTE | 2018-01-26 15:52 | NUR ---
Discharge Planning: CM Director asked BLINDMAKER to fax pt's information to [facility] ([phone] p.[phone]); BLINDMAKER spoke to Elaine at [facility] who states that they do have a bed for pt. Elaine asked BLINDMAKER to call back when pt has a DC order for bed assignment. BLINDMAKER will update CM Director.
[2018-01-26 16:00] VITALS: BP_SYST 108
--- NOTE | 2018-01-26 16:08 | NUR ---
Nutrition F/U Admitting Diagnosis Respiratory failure and aspiration pneumonia Reviewed Pertinent Medical/Surgical Hx Medical Record Patient Son Medical History Comment: PMH: stage 4 lung CA w/ mets to brain (Dx 2010), HTN per MD notes Pt found w/ acute hypoxemic respiratory failure 2/2 aspiration pneumonia, possible acute hemorrhagic stroke, stage 4 CA w/ mets to brain, HTN, hyponatremia, severe malnutrition per MD notes Subjective Information Pt seen resting in bed w/ son at bedside. Pt reported that he has been eating and tolerating regular diet well, and receiving Ensure Enlive oral supplements TID, as well as snacks TID in-between meals. Pt reported that he hasn't had a BM since last night. RD inquired about N/V/C/D, pt reported that he is having a bit of constipation. RD offered extra vegetables or prune juice w/ dinner meal tonight; pt agreeable to prune juice. Per EMR, PO Intakes: 94% average x9 meals. Abd is soft and non-distended w/ active bowel sounds. I/O: 586/350 (+236 ml) per [address] ordered via [employer] and notified [facility] staff to provide. Pt is likely meeting optimal nutritional needs. Current Diet Order/Nutrition Support Regular, Ensure Enlive TID Patient/Significant Other Able To Verbalize Education Provided Not Indicated Pertinent Medications colace, decadron, culturelle, piperacillin/tazobactam IV, zofran Pertinent Labs Na 133 L, ALB 2 L, H/H 9.5 L/29.5 L, BG 111 H Height (Feet) 5 feet Height (Inches) 8.00 inches Weight (Pounds) 127 pounds (01/22/18) Weight (Calculated Kilograms) 57.159022 kilograms Patient Weight 57.606 kg Body Mass Index 19.31 kg/m2 Usual Weight 170 lbs %UBW 175 %IBW 83 [place]/Adjusted Body Weight IBW: 154 lb, 70 kg Recent Weight Change 43 lb wt loss since last year; 25% severe wt change Weight Status Appropriate Gastrointestinal Symptoms Constipation Last BM 01/25/18 Food Allergies No Usual Diet At Home Regular Skin Integrity Comment: Simon scale: 16; no skin issues noted Estimated Energy Expenditure (kcals/day) 0100-9198 kcal/day (30-35 kcal/kg CBW for CA) Estimated Protein Required (g/day) 84-105 gm/day (1.2-1.5 gm/kg CBW for CA) Estimated Fluid Required (l/day) 2-2.5 L/day (1 ml/kcal/day for maintenance) Problem/Etiology/Signs/Symptoms Unintentional wt loss related to catabolic illness as evidenced by 43 lb wt loss/25% severe wt change within one year. *ongoing Inadequate nutritional intakes related to metabolic demands as evidenced by NPO status and inability to meet optimal nutritional needs. *improved -- pt is tolerating regular diet, and eating well Expected Outcomes/Goals - Monitor appetite and PO intakes w/ goal of pt meeting at least 75% of estimated nutritional needs, labs trending WNL, normal GI function, and skin integrity/wt maintenance Dietitian Recommendations * Recommend continuing regular diet, Ensure Enlive TID (oral supplement provides an additional 1050 kcal/day and 60 gm protein/day) * Recommend continuing snacks TID in-between meals Follow Up Low Risk: F/U in 7 days
--- NOTE | 2018-01-26 16:08 | NUR ---
ROUNDS Pt resting quietly in bed with no s/s resp distress, no c/o pain or discomfort.
--- NOTE | 2018-01-26 18:25 | NUR ---
CLOSING NOTE Pt sitting up in bed eating his dinner. No c/o SOB, no s/s resp distress, no s/s seizure activity, no c/o pain or discomfort. All safety and skin precautions remain in place. Needs met, call light within reach.
--- NOTE | 2018-01-26 19:15 | NUR ---
OPENING NOTE RECEIVED PT AND REPORT FROM DAY SHIFT NURSE. PT SITTING UP AWAKE IN BED. ABLE TO VERBALIZE NEEDS. FAMILY AT BEDSIDE. DENIES ANY PAIN OR DISCOMFORT AT THIS TIME. PT ON ROOM AIR. IV INTACT AND RUNNING IVF PER ORDERS. FAMILY AT BEDSIDE. FALL AND SAFETY PRECAUTIONS IN PLACE. BED LOCKED IN LOWEST POSITION, BED ALARM ON. CALL LIGHT WITH PT. WILL CONTINUE TO MONITOR.
[2018-01-26 20:00] VITALS: BP_SYST 108
--- NOTE | 2018-01-26 20:26 | NUR ---
IV ABX ADMINISTERED IV ABX PER ORDERS. RE TAPED PT IV. NO OTHER NEEDS. WILL CONTINUE TO MONITOR.
--- NOTE | 2018-01-26 21:15 | NUR ---
IV KEPPRA NEW IV INSERTION INSERTED 20 GAUGE TO RIGHT FOREARM. ADMINISTERED IV KEPPRA PER ORDERS. PT TOLERATED WELL. NO OTHER NEEDS. CALL LIGHT WITH PT.
[2018-01-27] MEDS: DEXAMETHASONE SOD PHOSPHATE 4 MG/ML VIAL IVP SCH ×2 (00:05→05:07)
--- NOTE | 2018-01-27 00:05 | NUR ---
MEDICATION ADMINISTRATION ADMINISTERED MEDICATION PER ORDERS. NO NEEDS AT THIS TIME. WILL CONTINUE TO MONITOR
[2018-01-27 00:30] VITALS: BP_SYST 115
[2018-01-27] MEDS: guaiFENesin/DEXTROMETHORPHAN 10 ML UDC PO PRN (01:23)
[2018-01-27] MEDS: PIPERACILLIN/TAZO 3.375/DEX-IS 50 ML IV SCH ×3 (01:23→12:57)
--- NOTE | 2018-01-27 01:25 | NUR ---
IV ABX/ COUGH MEDICATION ADMINISTERED IV ABX PER ORDERS. ADMINISTERED PRN COUGH MEDICATION. NO OTHER NEEDS. WILL CONTINUE TO MONITOR. CALL LIGHT WITH PT.
--- NOTE | 2018-01-27 03:15 | NUR ---
ROUNDING NOTE PT RESTING IN BED. NO S/S OF ACUTE DISTRESS. CALL LIGHT WITH PT. WILL CONTINUE TO MONITOR.
--- NOTE | 2018-01-27 05:08 | NUR ---
MEDICATION ADMINISTRATION ADMINISTERED MEDICATION PER ORDERS. PT SLEEPING AT THIS TIME. CALL LIGHT WITH PT. WILL CONTINUE TO MONITOR.
[2018-01-27 07:14] LABS: CALCIUM 8.4 mg/dL (8.4-11.0); CREATININE 0.87 mg/dL (0.55-1.30); POTASSIUM 4.3 mmol/L (3.5-5.1)
--- NOTE | 2018-01-27 07:30 | NUR ---
Opening Note Patient resting in bed, awake and alert, no complaints of pain at this time, breathing unlabored on room air, IV site saline locked, educated patient on use of call light for assistance, verbalized understanding, call light and bedside table left within reach, will be back to check on patient
--- NOTE | 2018-01-27 07:36 | NUR ---
CLOSING NOTE ENDORSED CARE AND REPORT TO DAY SHIFT NURSE. PT IS RESTING IN BED. PT DENIES ANY PAIN. ALL NEEDS MET THROUGHOUT SHIFT. PT IN STABLE CONDITION. NO SIGNIFICANT CHANGES TO NOTE DURING SHIFT. CALL LIGHT WITH PT.
[2018-01-27 08:00] VITALS: BP_SYST 122
[2018-01-27] MEDS: METOPROLOL SUCCINATE 50 MG TAB.SR.24H (TOPROL XL) PO SCH (08:19)
[2018-01-27] MEDS: LACTOBACILLUS RHAMNOSUS GG 1 CAP CAPSULE PO SCH (08:19)
[2018-01-27] MEDS: DOCUSATE SODIUM 100 MG CAPSULE PO SCH (08:19)
[2018-01-27] MEDS: VALSARTAN 160 MG TABLET (DIOVAN) PO SCH (08:20)
--- NOTE | 2018-01-27 08:33 | NUR ---
Medication Administration Patient educated regarding medications, verbalized understanding, able to take medications by mouth, no complaints of pain, breathing unlabored on room air, states IV site is painful, will initiate new IV site soon, no other needs at this time, safety precautions in place, call light and bedside table left within reach, will be back to check on patient
--- NOTE | 2018-01-27 09:35 | NUR ---
IV Re-Insertion Complaining of pain to IV site. Restarted on Right Forearm 20G. Successful after 1 attempt. Informed Sharla JAMIL, will observe for any signs of infiltration.
[2018-01-27 09:40] VITALS: BP_SYST 122
[2018-01-27] MEDS: levETIRAcetam 1,000 MG in NS 100 ML IV SCH (10:53)
--- NOTE | 2018-01-27 11:15 | NUR ---
Patient resting in bed at this time, keppa infusing, site patent, no complaints of pain, family at bedside, 350 mL urine in urinal, no other needs at this time, safety precautions in place, call light and bedside table left within reach, will be back to check on patient
--- NOTE | 2018-01-27 11:16 | NUR ---
Dr. Araiza Rounds at this time will follow through with orders
[2018-01-27 12:00] VITALS: BP_SYST 122
--- NOTE | 2018-01-27 12:27 | NUR ---
Discharge Planning: ELECTRICAL INSPECTOR spoke to Elaine at [facility] ([phone]); Pt has been accepted and can go to room 27A; transport has been set up with [facility] ([phone]) fruit or nut picker at 1:30pm. Packet has been placed at nurses station. Pt's son at bedside is aware.
[2018-01-27 12:39] VITALS: BP_SYST 122
--- NOTE | 2018-01-27 13:45 | NUR ---
PT TRANSFERRED Report given to Umu at [facility]. Transfer packet with Transfer Orders and Medication Reconciliation form given to EMT with report. Exitcare provided. IV catheter removed, intact and dressing applied, no active bleeding. All belongings sent with patient. Patient left floor via gurney escorted by EMT in no distress.
[2018-01-27] MEDS ORDERED: methylPREDNISolone 4 MG TABLET PO SCH (18:00)
[2018-01-27] MEDS ORDERED: levETIRAcetam 500 MG TABLET PO SCH (21:00)
== END 2018-01-27 13:45 | DRG 177 ==
LOC: SED 13:12 → STU 15:09 → SIC 17:46 → STU 01-25 18:45
PROVIDERS: ADMIT Family Medicine; ATTEND Family Medicine
DX: J69.0 Pneumonitis due to inhalation of food and vomit (principal); I61.9 Nontraumatic intracerebral hemorrhage, unspecified; J96.01 Acute respiratory failure with hypoxia; E43 Unspecified severe protein-calorie malnutrition; E87.1 Hypo-osmolality and hyponatremia; C79.31 Secondary malignant neoplasm of brain; C34.92 Malignant neoplasm of unspecified part of left bronchus or lung; C34.91 Malignant neoplasm of unspecified part of right bronchus or lung; N39.0 Urinary tract infection, site not specified; Z68.1 Body mass index [BMI] 19.9 or less, adult; E83.39 Other disorders of phosphorus metabolism; T38.0X5A Adverse effect of glucocorticoids and synthetic analogues, initial encounter; Y92.89 Other specified places as the place of occurrence of the external cause; D64.9 Anemia, unspecified; I10 Essential (primary) hypertension; Z92.3 Personal history of irradiation; Z92.21 Personal history of antineoplastic chemotherapy; Z87.891 Personal history of nicotine dependence
CPT/HCPCS: 36415; 36600; 70450-TC; 70544; 70553; 71045; 71275; 80048; 80053; 80061; 80307; 81000-TC; 82140-TC; 82150-TC; 82803-TC; 83036; 83605; 83615-TC; 83690-TC; 83735-TC; 83880; 83930-TC; 83935-TC; 84100-TC; 84295-TC; 84302-TC; 84436; 84439; 84443-TC; 84479; 84480; 84484; 85007; 85025; 85027; 85610-TC; 85651-TC; 86140; 87040-TC; 87081; 87086; 93005; 94640; 96361; 96365; 99285; A9579; J1100; J1953; J1956; J2060; J2270; J2405; J2543; J2597; J7030; J7613; Q9967